=== PATIENT | female | born 1965 | race Caucasian/White ===

== ENCOUNTER 2018-05-14 17:55 | Inpatient (IN) | payer OTHER ==
[2018-05-14] MEDS ORDERED: METOCLOPRAMIDE 10 MG INJ IV (19:00)
[2018-05-14] MEDS ORDERED: DOCUSATE SODIUM 100 MG CAP PO (19:00)
[2018-05-14] MEDS ORDERED: ONDANSETRON 4 MG INJ IV (19:00)
[2018-05-14] MEDS ORDERED: NACL 0.9% 3 ML SYG IV ×2 (19:00)
[2018-05-14] MEDS: SOD CHLORIDE 0.9% 1,000 ML IV (19:37)
[2018-05-14 19:38] LABS: WHITE BLOOD COUNT 11.2 10^3/ul (4.8-10.8)
[2018-05-14 19:38] LABS: HEMATOCRIT 37.3 % (37.0-47.0); HEMOGLOBIN 12.9 g/dl (12.0-16.0); IMMATURE GRANS #M 0.03 10^3/ul; IMMATURE GRANS % (M) 0.3 %; MEAN CORPUSCULAR HEMOGLOBIN 31.6 pg (29.0-33.0); MEAN CORPUSCULAR HGB CONC 34.6 g/dl (32.0-37.0); MEAN CORPUSCULAR VOLUME 91.4 fl (82.0-101.0); MEAN PLATELET VOLUME 9.2 fl (7.4-10.4); PLATELET COUNT 212 10^3/UL (140-415); RED BLOOD COUNT 4.08 10^6/ul (4.20-5.40); RED CELL DISTRIBUTION WIDTH 13.1 % (11.5-14.5)
[2018-05-14] MEDS: ACETAMINOPHEN 325 MG TAB PO (19:38)
[2018-05-14] MEDS: CEFTRIAXONE 1 GM/50 ML (PMX) 50 ML IVPB (19:41)
[2018-05-14 19:43] LABS: POSITIVE DIFF @See below
[2018-05-14 19:44] LABS: ADD MAN DIFF? YES
[2018-05-14 19:59] LABS: ALANINE AMINOTRANSFERASE 25 IU/L (13-69); ALBUMIN 3.5 g/dl (3.3-4.9); ALBUMIN/GLOBULIN RATIO 0.97; ALKALINE PHOSPHATASE 78 IU/L (42-121); ANION GAP 10 (8-16); ASPARTATE AMINO TRANSFERASE 33 IU/L (15-46); BILIRUBIN,INDIRECT 0.4 mg/dl (0-1.1); BILIRUBIN,TOTAL 0.4 mg/dl (0.2-1.3); BLOOD UREA NITROGEN 12 mg/dl (7-20); CALCIUM 8.4 mg/dl (8.4-10.2); CARBON DIOXIDE 23 mmol/L (21-31); CHLORIDE 108 mmol/L (97-110); GLUCOSE 116 mg/dl (70-220); POTASSIUM 3.1 mmol/L (3.5-5.1); SODIUM 138 mmol/L (135-144); TOTAL PROTEIN 7.1 g/dl (6.1-8.1)
[2018-05-14 20:15] LABS: BAND NEUTROPHILS % (M) 9 % (0-4); BASOPHIL # 0.1 10^3/ul (0.0-0.1); LYMPHOCYTES % (M) 9 % (15-51); MONOCYTE # 0.6 10^3/ul (0.3-0.9); MONOCYTE #M 0.5 10^3/ul (0.3-0.9); MONOCYTES % (M) 5 % (0-11); SEG NEUT #M 8.6 10^3/ul (1.7-7.5); SEGMENTED NEUTROPHILS (M) % 76 % (39-77)
[2018-05-14] MEDS ORDERED: morphine 2 MG INJ IV (21:00)
[2018-05-14] MEDS: POTASSIUM CHLORIDE 100 ML IVPB (22:47)
[2018-05-15] MEDS: POTASSIUM CHLORIDE 100 ML IVPB (00:53)
[2018-05-15] MEDS: ACETAMINOPHEN 325 MG TAB PO ×2 (04:50→14:11)
[2018-05-15] MEDS: SOD CHLORIDE 0.9% 1,000 ML IV ×2 (05:00→14:13)
[2018-05-15] MEDS: PANTOPRAZOLE 40 MG INJ IV (05:52)
[2018-05-15 05:55] LABS: HEMATOCRIT 37.4 % (37.0-47.0); HEMOGLOBIN 12.5 g/dl (12.0-16.0); IMMATURE GRANS #M 0.04 10^3/ul; IMMATURE GRANS % (M) 0.4 %; MEAN CORPUSCULAR HEMOGLOBIN 30.9 pg (29.0-33.0); MEAN CORPUSCULAR HGB CONC 33.4 g/dl (32.0-37.0); MEAN CORPUSCULAR VOLUME 92.3 fl (82.0-101.0); MEAN PLATELET VOLUME 9.8 fl (7.4-10.4); PLATELET COUNT 220 10^3/UL (140-415); RED BLOOD COUNT 4.05 10^6/ul (4.20-5.40)
[2018-05-15 06:04] LABS: ADD MAN DIFF? YES; POSITIVE DIFF @See below
[2018-05-15 06:35] LABS: ALANINE AMINOTRANSFERASE 28 IU/L (13-69); ALBUMIN 3.3 g/dl (3.3-4.9); ALKALINE PHOSPHATASE 76 IU/L (42-121); ANION GAP 12 (8-16); ASPARTATE AMINO TRANSFERASE 36 IU/L (15-46); BILIRUBIN,INDIRECT 0.2 mg/dl (0-1.1); BILIRUBIN,TOTAL 0.2 mg/dl (0.2-1.3); BLOOD UREA NITROGEN 7 mg/dl (7-20); CARBON DIOXIDE 23 mmol/L (21-31); CHLORIDE 108 mmol/L (97-110); CREATININE 0.53 mg/dl (0.44-1.00); GLUCOSE 153 mg/dl (70-220); MAGNESIUM 1.8 mg/dl (1.7-2.5); PHOSPHORUS 2.3 mg/dl (2.5-4.9); POTASSIUM 3.7 mmol/L (3.5-5.1); SODIUM 139 mmol/L (135-144); TOTAL PROTEIN 6.6 g/dl (6.1-8.1)
[2018-05-15 06:50] LABS: HEMOGLOBIN A1C 6.5 % (0-5.9)
[2018-05-15 07:24] LABS: ADD UMIC YES; UR ASCORBIC ACID NEGATIVE (NEGATIVE); UR BACTERIA FEW /HPF (NONE SEEN); UR BILIRUBIN (Dip) NEGATIVE (NEGATIVE); UR BLOOD (Dip) 2+ mg/dL (NEGATIVE); UR CLARITY CLEAR (CLEAR); UR COLOR YELLOW (YELLOW); UR GLUCOSE (Dip) NEGATIVE (NEGATIVE); UR KETONES (Dip) 2+ mg/dL (NEGATIVE); UR LEUKOCYTE ESTERASE (Dip) NEGATIVE Leu/ul (NEGATIVE); UR MUCUS FEW /HPF (NONE SEEN); UR NITRITE (Dip) NEGATIVE (NEGATIVE); UR RBC 20 /HPF (0-5); UR SPECIFIC GRAVITY (Dip) 1.015 (1.003-1.030); UR SQUAMOUS EPITHELIAL CELL FEW /HPF (FEW); UR TOTAL PROTEIN (Dip) NEGATIVE (NEGATIVE); UR UROBILINOGEN (Dip) NEGATIVE (NEGATIVE); UR WBC 2 /HPF (0-5)
[2018-05-15 08:05] LABS: BAND NEUTROPHILS #M 4.1 10^3/ul (0.0-0.6); BAND NEUTROPHILS % (M) 38 % (0-4); BASOPHIL #M 0.1 10^3/ul (0.0-0.0); BASOPHILS % (M) 1 % (0-2); LYMPHOCYTES #M 1.5 10^3/ul (0.8-2.9); LYMPHOCYTES % (M) 14 % (15-51); MONOCYTE #M 0.2 10^3/ul (0.3-0.9); MONOCYTES % (M) 2 % (0-11); PLATELET ESTIMATE NORMAL; REACTIVE LYMPHOCYTES #M 0.3 10^3/ul (0.0-0.0); REACTIVE LYMPHOCYTES% (M) 3 % (0-0); SEG NEUT #M 5.1 10^3/ul (1.6-7.5); SEGMENTED NEUTROPHILS (M) % 42 % (39-77); SMUDGE%M 4 % (0-0)
[2018-05-15] MEDS: metroNIDAZOLE 500 MG/NS (PMX) 100 ML IVPB ×2 (17:15→23:28)
[2018-05-15] MEDS: AZITHROMYCIN 250 MG TAB PO (19:27)
[2018-05-15] MEDS: ONDANSETRON 4 MG INJ IV (20:05)
[2018-05-16] MEDS: SOD CHLORIDE 0.9% 1,000 ML IV ×3 (01:30→18:29)
[2018-05-16] MEDS: PANTOPRAZOLE 40 MG INJ IV (05:33)
[2018-05-16] MEDS: metroNIDAZOLE 500 MG/NS (PMX) 100 ML IVPB ×3 (05:33→21:36)
[2018-05-16 07:06] LABS: HEMATOCRIT 33.8 % (37.0-47.0); MEAN CORPUSCULAR HEMOGLOBIN 30.3 pg (29.0-33.0); MEAN CORPUSCULAR HGB CONC 32.5 g/dl (32.0-37.0); MEAN CORPUSCULAR VOLUME 93.1 fl (82.0-101.0); MEAN PLATELET VOLUME 9.9 fl (7.4-10.4); PLATELET COUNT 215 10^3/UL (140-415); RED BLOOD COUNT 3.63 10^6/ul (4.20-5.40); RED CELL DISTRIBUTION WIDTH 13.3 % (11.5-14.5)
[2018-05-16 07:27] LABS: ADD MAN DIFF? YES
[2018-05-16 07:34] LABS: PHOSPHORUS 2.3 mg/dl (2.5-4.9)
[2018-05-16 07:34] LABS: ALANINE AMINOTRANSFERASE 31 IU/L (13-69); ALKALINE PHOSPHATASE 67 IU/L (42-121); ANION GAP 8 (8-16); ASPARTATE AMINO TRANSFERASE 32 IU/L (15-46); BILIRUBIN,INDIRECT 0.1 mg/dl (0-1.1); BILIRUBIN,TOTAL 0.1 mg/dl (0.2-1.3); BLOOD UREA NITROGEN 6 mg/dl (7-20); CALCIUM 8.1 mg/dl (8.4-10.2); CARBON DIOXIDE 26 mmol/L (21-31); CHLORIDE 111 mmol/L (97-110); CREATININE 0.49 mg/dl (0.44-1.00); GLUCOSE 130 mg/dl (70-220); MAGNESIUM 1.8 mg/dl (1.7-2.5); POTASSIUM 3.3 mmol/L (3.5-5.1); SODIUM 142 mmol/L (135-144); TOTAL PROTEIN 6.3 g/dl (6.1-8.1)
[2018-05-16 07:53] LABS: BAND NEUTROPHILS #M 0.9 10^3/ul (0.0-0.6); BAND NEUTROPHILS % (M) 12 % (0-4); BASOPHILS % (M) 1 % (0-2); EOSINOPHILS % (M) 12 % (0-7); LYMPHOCYTES #M 1.6 10^3/ul (0.8-2.9); LYMPHOCYTES % (M) 20 % (15-51); MONOCYTE #M 0.8 10^3/ul (0.3-0.9); MONOCYTES % (M) 11 % (0-11); PLATELET ESTIMATE NORMAL; SEG NEUT #M 3.6 10^3/ul (1.6-7.5); SEGMENTED NEUTROPHILS (M) % 44 % (39-77); SMUDGE%M 3 % (0-0)
[2018-05-16] MEDS: AZITHROMYCIN 250 MG TAB PO (08:17)
[2018-05-16] MEDS ORDERED: NEUTRA-PHOS 250 MG PACKET PO (09:00)
[2018-05-16] MEDS ORDERED: DICYCLOMINE 10 MG CAP PO (10:30)
[2018-05-16] MEDS: POTASSIUM CHLORIDE (SR) 20 MEQ TAB PO (11:42)
[2018-05-16] MEDS: NEUTRA-PHOS 250 MG PACKET PO (11:42)
[2018-05-16] MEDS ORDERED: morphine LIQ (10 MG/5 ML) CUP PO (17:00)
[2018-05-16 17:54] LABS: ALPHA FETOPROTEIN 1.89 IU/L (0.00-7.21)
[2018-05-16] MEDS: ACETAMINOPHEN 325 MG TAB PO (20:47)
[2018-05-17] MEDS: SOD CHLORIDE 0.9% 1,000 ML IV ×3 (05:41→18:55)
[2018-05-17] MEDS: PANTOPRAZOLE 40 MG INJ IV (05:41)
[2018-05-17] MEDS: metroNIDAZOLE 500 MG/NS (PMX) 100 ML IVPB ×3 (05:41→21:58)
[2018-05-17 06:57] LABS: PHOSPHORUS 3.2 mg/dl (2.5-4.9)
[2018-05-17 06:57] LABS: MAGNESIUM 1.8 mg/dl (1.7-2.5)
[2018-05-17 07:11] LABS: ANION GAP 12 (8-16); BLOOD UREA NITROGEN 4 mg/dl (7-20); CALCIUM 8.6 mg/dl (8.4-10.2); CARBON DIOXIDE 26 mmol/L (21-31); CHLORIDE 107 mmol/L (97-110); CREATININE 0.44 mg/dl (0.44-1.00); GLUCOSE 106 mg/dl (70-220); POTASSIUM 3.3 mmol/L (3.5-5.1); SODIUM 142 mmol/L (135-144)
[2018-05-17] MEDS: AZITHROMYCIN 250 MG TAB PO (08:55)
[2018-05-17] MEDS: POTASSIUM CHLORIDE (SR) 20 MEQ TAB PO (09:34)
[2018-05-17] MEDS ORDERED: GLUCOSE GEL 15 GRAM TUBE PO ×2 (10:30)
[2018-05-17] MEDS ORDERED: GLUCOSE GEL 15 GRAM TUBE BUCCAL (10:30)
[2018-05-17] MEDS ORDERED: GLUCAGON 1 MG INJ IM (10:30)
[2018-05-17] MEDS ORDERED: DEXTROSE 50% 50 ML SYRINGE IV ×2 (10:30)
[2018-05-17] MEDS: INSULIN ASPART [NOVOLOG] 3 ML PEN SC ×3 (12:00→21:00)
[2018-05-17] MEDS ORDERED: hydrALAzine 20 MG INJ IV ×2 (18:00)
[2018-05-17] MEDS: ZOLPIDEM 5 MG TAB PO (22:11)
[2018-05-18] MEDS: ACCU-CHEK XX ×2 (02:00→22:24)
[2018-05-18 05:15] LABS: WHITE BLOOD COUNT 9.2 10^3/ul (4.8-10.8)
[2018-05-18 05:15] LABS: HEMATOCRIT 33.6 % (37.0-47.0); HEMOGLOBIN 11.5 g/dl (12.0-16.0); MEAN CORPUSCULAR HEMOGLOBIN 31.4 pg (29.0-33.0); MEAN CORPUSCULAR HGB CONC 34.2 g/dl (32.0-37.0); MEAN CORPUSCULAR VOLUME 91.8 fl (82.0-101.0); MEAN PLATELET VOLUME 9.5 fl (7.4-10.4); PLATELET COUNT 258 10^3/UL (140-415); RED BLOOD COUNT 3.66 10^6/ul (4.20-5.40); RED CELL DISTRIBUTION WIDTH 13.1 % (11.5-14.5)
[2018-05-18 05:41] LABS: ANION GAP 12 (8-16); BLOOD UREA NITROGEN 4 mg/dl (7-20); CALCIUM 8.6 mg/dl (8.4-10.2); CARBON DIOXIDE 25 mmol/L (21-31); CHLORIDE 109 mmol/L (97-110); CREATININE 0.47 mg/dl (0.44-1.00); GLUCOSE 112 mg/dl (70-220); POTASSIUM 3.6 mmol/L (3.5-5.1); SODIUM 142 mmol/L (135-144)
[2018-05-18] MEDS: metroNIDAZOLE 500 MG/NS (PMX) 100 ML IVPB ×2 (06:03→14:27)
[2018-05-18] MEDS: PANTOPRAZOLE 40 MG INJ IV (06:03)
[2018-05-18 06:24] LABS: ADD MAN DIFF? YES; POSITIVE DIFF @See below
[2018-05-18] MEDS: INSULIN ASPART [NOVOLOG] 3 ML PEN SC ×4 (08:00→20:34)
[2018-05-18 10:29] LABS: BAND NEUTROPHILS #M 0.3 10^3/ul (0.0-0.6); BAND NEUTROPHILS % (M) 4 % (0-4); EOSINOPHILS % (M) 7 % (0-7); LYMPHOCYTES #M 1.8 10^3/ul (0.8-2.9); LYMPHOCYTES % (M) 20 % (15-51); MONOCYTE #M 0.6 10^3/ul (0.3-0.9); MONOCYTES % (M) 7 % (0-11); PLATELET ESTIMATE NORMAL; POLYCHROMASIA 1+ (0-0); REACTIVE LYMPHOCYTES% (M) 1 % (0-0); SEG NEUT #M 5.6 10^3/ul (1.6-7.5); SEGMENTED NEUTROPHILS (M) % 61 % (39-77); SMUDGE%M 4 % (0-0)
[2018-05-18 13:45] LABS: OCCULT BLOOD STOOL NEGATIVE (NEGATIVE)
[2018-05-19] MEDS: PANTOPRAZOLE 40 MG INJ IV (05:24)
[2018-05-19] MEDS: ACETAMINOPHEN 325 MG TAB PO (05:24)
[2018-05-19] MEDS: INSULIN ASPART [NOVOLOG] 3 ML PEN SC ×3 (08:00→17:18)
== END 2018-05-19 17:40 | disposition home or self-care (01) | DRG 872 ==
LOC: MS3 17:55 → PP2 05-16 18:24
DX: A41.9 Sepsis, unspecified organism (principal); A04.5 Campylobacter enteritis; E11.9 Type 2 diabetes mellitus without complications; M17.0 Bilateral primary osteoarthritis of knee; D18.09 Hemangioma of other sites
CPT/HCPCS: 74182; 80048; 80053; 81001; 82105; 82270; 82962; 83036; 83735; 84100; 85025; 87045; 87086

== ENCOUNTER 2019-02-18 09:12 | Emergency (ER) | payer OTHER ==
[2019-02-18] MEDS: SOD CHLORIDE 0.9% 1,000 ML IV (10:12)
[2019-02-18] MEDS: ONDANSETRON 4 MG INJ IV (10:13)
[2019-02-18 10:18] LABS: ADD MAN DIFF? NO
[2019-02-18 10:20] LABS: ADD UMIC YES; UR ASCORBIC ACID NEGATIVE (NEGATIVE); UR BACTERIA FEW /HPF (NONE SEEN); UR BILIRUBIN (Dip) NEGATIVE (NEGATIVE); UR BLOOD (Dip) 1+ mg/dL (NEGATIVE); UR CLARITY CLEAR (CLEAR); UR COLOR YELLOW (YELLOW); UR GLUCOSE (Dip) NEGATIVE (NEGATIVE); UR KETONES (Dip) NEGATIVE (NEGATIVE); UR LEUKOCYTE ESTERASE (Dip) NEGATIVE Leu/ul (NEGATIVE); UR NITRITE (Dip) NEGATIVE (NEGATIVE); UR RBC 2 /HPF (0-5); UR SPECIFIC GRAVITY (Dip) 1.013 (1.003-1.030); UR SQUAMOUS EPITHELIAL CELL FEW /HPF (FEW); UR TOTAL PROTEIN (Dip) NEGATIVE (NEGATIVE); UR UROBILINOGEN (Dip) NEGATIVE (NEGATIVE); UR WBC 1 /HPF (0-5)
[2019-02-18 10:22] LABS: ABNORMAL IP MESSAGE 1; BASOPHIL # 0.1 10^3/ul (0.0-0.1); BASOPHILS % 0.6 % (0.0-2.0); EOSINOPHILS # 2.3 10^3/ul (0.0-0.5); EOSINOPHILS % 23.9 % (0.0-7.0); HEMATOCRIT 42.7 % (37.0-47.0); HEMOGLOBIN 13.9 g/dl (12.0-16.0); LYMPHOCYTES # 1.9 10^3/ul (0.8-2.9); LYMPHOCYTES % 19.7 % (15.0-51.0); MEAN CORPUSCULAR HEMOGLOBIN 30.4 pg (29.0-33.0); MEAN CORPUSCULAR HGB CONC 32.6 g/dl (32.0-37.0); MEAN CORPUSCULAR VOLUME 93.4 fl (82.0-101.0); MEAN PLATELET VOLUME 9.4 fl (7.4-10.4); MONOCYTE # 0.6 10^3/ul (0.3-0.9); MONOCYTES % 6.2 % (0.0-11.0); NEUTROPHIL # 4.7 10^3/ul (1.6-7.5); NEUTROPHILS % 49.4 % (39.0-77.0); PLATELET COUNT 288 10^3/UL (140-415); RED BLOOD COUNT 4.57 10^6/ul (4.20-5.40); RED CELL DISTRIBUTION WIDTH 12.6 % (11.5-14.5)
[2019-02-18 10:22] LABS: WHITE BLOOD COUNT 9.4 10^3/ul (4.8-10.8)
[2019-02-18] MEDS: KETOROLAC 15 MG INJ IV (10:48)
[2019-02-18 10:49] LABS: ALANINE AMINOTRANSFERASE 24 IU/L (13-69); ALBUMIN 4.4 g/dl (3.3-4.9); ALBUMIN/GLOBULIN RATIO 1.25; ALKALINE PHOSPHATASE 110 IU/L (42-121); ANION GAP 7 (5-13); ASPARTATE AMINO TRANSFERASE 21 IU/L (15-46); BILIRUBIN,INDIRECT 0.4 mg/dl (0-1.1); BILIRUBIN,TOTAL 0.4 mg/dl (0.2-1.3); BLOOD UREA NITROGEN 17 mg/dl (7-20); CALCIUM 9.5 mg/dl (8.4-10.2); CARBON DIOXIDE 29 mmol/L (21-31); CHLORIDE 106 mmol/L (97-110); Estimated GFR > 60 mL/min (>60); GLUCOSE 136 mg/dl (70-220); LIPASE 54 U/L (23-300); SODIUM 142 mmol/L (135-144); TOTAL PROTEIN 7.9 g/dl (6.1-8.1)
[2019-02-18 11:00] LABS: TROPONIN-I < 0.012 ng/ml (0.000-0.120)
[2019-02-18] MEDS: ONDANSETRON (ODT) 4 MG TAB ODT (12:21)
== END 2019-02-18 11:50 | disposition home or self-care (01) ==
LOC: E/R 09:12
DX: G43.909 Migraine, unspecified, not intractable, without status migrainosus (principal); R40.2142 Coma scale, eyes open, spontaneous, at arrival to emergency department; R40.2252 Coma scale, best verbal response, oriented, at arrival to emergency department; R40.2362 Coma scale, best motor response, obeys commands, at arrival to emergency department
CPT/HCPCS: 36415; 80053; 81001; 83690; 84484; 85025; 93005; 96361; 96374; 96375; 99284-25

== ENCOUNTER 2019-05-07 10:12 | Emergency (ER) | payer OTHER ==
[2019-05-07 11:06] LABS: ADD MAN DIFF? NO
[2019-05-07 11:13] LABS: WHITE BLOOD COUNT 9.6 10^3/ul (4.8-10.8)
[2019-05-07 11:13] LABS: BASOPHIL # 0.1 10^3/ul (0.0-0.1); BASOPHILS % 0.5 % (0.0-2.0); EOSINOPHILS # 0.6 10^3/ul (0.0-0.5); EOSINOPHILS % 5.7 % (0.0-7.0); HEMATOCRIT 44.2 % (37.0-47.0); HEMOGLOBIN 14.3 g/dl (12.0-16.0); LYMPHOCYTES % 20.7 % (15.0-51.0); MEAN CORPUSCULAR HEMOGLOBIN 30.3 pg (29.0-33.0); MEAN CORPUSCULAR HGB CONC 32.4 g/dl (32.0-37.0); MEAN CORPUSCULAR VOLUME 93.6 fl (82.0-101.0); MEAN PLATELET VOLUME 9.1 fl (7.4-10.4); MONOCYTE # 0.4 10^3/ul (0.3-0.9); MONOCYTES % 3.9 % (0.0-11.0); NEUTROPHIL # 6.6 10^3/ul (1.6-7.5); NEUTROPHILS % 68.8 % (39.0-77.0); PLATELET COUNT 325 10^3/UL (140-415); RED BLOOD COUNT 4.72 10^6/ul (4.20-5.40); RED CELL DISTRIBUTION WIDTH 12.5 % (11.5-14.5)
[2019-05-07 11:29] LABS: ADD UMIC YES; UR ASCORBIC ACID 40 mg/dL (NEGATIVE); UR BACTERIA FEW /HPF (NONE SEEN); UR BILIRUBIN (Dip) NEGATIVE (NEGATIVE); UR BLOOD (Dip) NEGATIVE (NEGATIVE); UR CLARITY SLIGHTLY CLOUDY (CLEAR); UR COLOR YELLOW (YELLOW); UR GLUCOSE (Dip) NEGATIVE (NEGATIVE); UR KETONES (Dip) NEGATIVE (NEGATIVE); UR LEUKOCYTE ESTERASE (Dip) TRACE Leu/ul (NEGATIVE); UR MUCUS FEW /HPF (NONE SEEN); UR NITRITE (Dip) NEGATIVE (NEGATIVE); UR RBC 4 /HPF (0-5); UR SPECIFIC GRAVITY (Dip) 1.019 (1.003-1.030); UR SQUAMOUS EPITHELIAL CELL FEW /HPF (FEW); UR TOTAL PROTEIN (Dip) NEGATIVE (NEGATIVE); UR UROBILINOGEN (Dip) NEGATIVE (NEGATIVE); UR WBC 8 /HPF (0-5)
[2019-05-07 11:32] LABS: ALANINE AMINOTRANSFERASE 23 IU/L (13-69); ALBUMIN 4.7 g/dl (3.3-4.9); ALBUMIN/GLOBULIN RATIO 1.11; ALKALINE PHOSPHATASE 98 IU/L (42-121); ANION GAP 9 (5-13); ASPARTATE AMINO TRANSFERASE 25 IU/L (15-46); BILIRUBIN,INDIRECT 0.5 mg/dl (0-1.1); BILIRUBIN,TOTAL 0.5 mg/dl (0.2-1.3); BLOOD UREA NITROGEN 17 mg/dl (7-20); CALCIUM 9.6 mg/dl (8.4-10.2); CARBON DIOXIDE 30 mmol/L (21-31); CHLORIDE 104 mmol/L (97-110); CREATININE 0.56 mg/dl (0.44-1.00); Estimated GFR > 60 mL/min (>60); GLUCOSE 137 mg/dl (70-220); LIPASE 40 U/L (23-300); POTASSIUM 4.1 mmol/L (3.5-5.1); SODIUM 143 mmol/L (135-144); TOTAL PROTEIN 8.9 g/dl (6.1-8.1)
== END 2019-05-07 12:22 | disposition home or self-care (01) ==
LOC: E/R 10:12
DX: R10.32 Left lower quadrant pain (principal)
CPT/HCPCS: 36415; 74176; 80053; 81001; 83690; 85025; 99284-25